=== PATIENT | female | born 1955 | race Caucasian/White ===

== ENCOUNTER → 2016-09-22 | Outpatient (CLI) | payer SELFPAY ==
[~2016-09-22] MED LIST: BACLOFEN10 MG PO; DULOXETINE HCL60 MG PO; HYDROCODON-ACE1 EAC7 PO; LODINE400 MG PO; LOPRESSOR PO; METFORMIN HCL500 M2 PO; NEXIUM PO; PLAQUENIL200 MG PO; PROGESTERONE100 MG PO; REQUIP2 MG PO; VITAMIN D-32000 UNIT PO; VIVELLE-DOT1 EAC4 TD; ZESTRIL10 MG PO
== END | disposition home or self-care (01) ==
LOC: CBAR 13:22
DX: Z01.818 Encounter for other preprocedural examination (principal); E66.01 Morbid (severe) obesity due to excess calories
CPT/HCPCS: G0463

== ENCOUNTER → 2016-10-19 | Outpatient (CLI) | payer SELFPAY | END | disposition home or self-care (01) | LOC: CBAR 09:02 | DX: Z01.818 Encounter for other preprocedural examination (principal); E66.01 Morbid (severe) obesity due to excess calories | CPT/HCPCS: G0463 ==

== ENCOUNTER → 2016-11-16 | Outpatient (CLI) | payer SELFPAY | END | disposition home or self-care (01) | LOC: CBAR 11:25 | DX: Z01.818 Encounter for other preprocedural examination (principal); E66.01 Morbid (severe) obesity due to excess calories | CPT/HCPCS: G0463 ==

== ENCOUNTER → 2016-12-08 | Outpatient (CLI) | payer SELFPAY ==
--- NOTE | ~2016-12-08 | CR63 ---
[facility] A Service of [facility] & [facility] RADIOLOGY TEXT RESULTS PATIENT: LISANDRA CANNON LOCATION: [facility] : 57 UNIT #: [id number] AGE: [address]: Maxx Connell III, MD SEX: F ORDER DR: [id number] [facility] [address] [place], [place] [address] [id number] O MR#: [id number] Acc #: [id number] NAME: LISANDRA CANNON : 1955 SEX: F STUDY DATE/TIME: 12/08/2016 8:53 UNIT: [facility] ROOM: STUDY DESCRIPTION: CR Chest 2 View Attending Physician: Maxx Connell III, M.D. Referring Physician: Maxx Connell III, M.D. Ordering Physician: Maxx Connell III, M.D. Primary Care Physician: Gaurav Maldonado Jr., M.D. MEDICAL IMAGING REPORT This report is preliminary unless electronic signature is present EXAM Chest PA and lateral 12/08/2016 HISTORY Morbid obesity. Preop laparoscopic gastric banding. Acid reflux. Benign essential hypertension. FINDINGS PA and lateral examination of the chest upright shows a good expansion of the parenchyma with a normal distribution of the pulmonary vascularity. There is no indication of congestion, effusion, infiltrate, tumor, or nodular density. The pleural reflections and diaphragmatic contours are normal. The cardiac silhouette and mediastinal anatomy is within normal limits. IMPRESSION Normal chest. Dictated by... Syed Carias M.D. THIS IS AN ELECTRONICALLY VERIFIED REPORT Syed Carias M.D. at 12/11/2016 7:33 AM MARGO/gerardo TD: 12/08/2016 20:00 JOB #: [id number] MEDICAL IMAGING REPORT Page 1 of 1 COPY
--- NOTE | ~2016-12-08 | EKG ---
PATIENT: LISANDRA CANNON UNIT #: [id number] Ventricular Rate: 63 BPM Atrial Rate: 63 BPM P-R Interval: 192 ms QRS Duration: 68 ms Q-T Interval: 412 ms QTC Calculation(Bezet): 421 ms Calculated R [place]: -15 degrees Calculated T [place]: -20 degrees Diagnosis Line: Normal sinus rhythm Diagnosis Line: Minimal voltage criteria for LVH, may be normal Diagnosis Line: variant Diagnosis Line: Nonspecific ST and T wave abnormality Diagnosis Line: Abnormal ECG Diagnosis Line: No previous ECGs available Diagnosis Line: Confirmed by WHIT KASPER MD ([id number]) on 12/08/2016 Diagnosis Line: 5:28:05 PM INTERPRETING MD: RANJITH AGUILAR
--- NOTE | ~2016-12-08 | CR97 ---
[facility] A Service of [facility] & [facility] RADIOLOGY TEXT RESULTS PATIENT: LISANDRA CANNON LOCATION: [facility] : 57 UNIT #: [id number] AGE: [address]: Maxx Connell III, MD SEX: F ORDER DR: [id number] [facility] [address] [place], [place] [address] [id number] O MR#: [id number] Acc #: [id number] NAME: LISANDRA CANNON : 1955 SEX: F STUDY DATE/TIME: 12/08/2016 9:32 UNIT: [facility] ROOM: STUDY DESCRIPTION: CR Esophagram Attending Physician: Maxx Connell III, M.D. Referring Physician: Maxx Connell III, M.D. Ordering Physician: Maxx Connell III, M.D. Primary Care Physician: Gaurav Maldonado Jr., M.D. MEDICAL IMAGING REPORT This report is preliminary unless electronic signature is present EXAM Esophagram 12/08/2016 HISTORY Planned bariatric surgery, preop assessment. PROCEDURE Solid column upper GI was performed with 0.3 minutes of fluoroscopy and 7 spot images. FINDINGS The esophagus is normal in course and caliber. There is no mass or ulceration or stricture or hernia. IMPRESSION Normal esophagram. Dictated by... Jv Rios M.D. THIS IS AN ELECTRONICALLY VERIFIED REPORT Jv Rios M.D. at 12/11/2016 9:06 AM CHER/lana TD: 12/09/2016 01:51 JOB #: [id number] MEDICAL IMAGING REPORT Page 1 of 1 COPY
[2016-12-08 10:16] LABS: HEMATOCRIT 39.8 % (35.0-45.0); HEMOGLOBIN 13.5 gm/dL (12.0-16.0); MEAN CELL VOLUME 81.7 FL (83-96); MEAN CORPUSCULAR HEMOGLOBIN 27.6 PG (28-34); MEAN CORPUSCULAR HGB CONC 33.8 g/dL (30-36); MEAN PLATELET VOLUME 8.5 FL (6.5-11.5); RED BLOOD COUNT 4.88 X10e (3.90-5.30); RED CELL DISTRIBUTION WIDTH 13.7 % (11.0-15.5); WHITE BLOOD COUNT 6.8 X10e3 (4.0-10.5)
[2016-12-08 10:59] LABS: BILIRUBIN,TOTAL 0.5 mg/dL (0.2-2.0); BUN/CREATININE RATIO 21.42; CALCIUM SERUM 9.6 mg/dL (8.4-10.2); CREATININE SERUM 0.7 mg/dL (0.6-1.4); GLOM FILT RATE Estimated 94.2 mL/min (>60); POTASSIUM 4.3 mmol/L (3.5-5.1); PROTEIN TOTAL SERUM 6.5 g/dL (6.0-8.3)
== END | disposition home or self-care (01) ==
LOC: CRAD 08:27 → CAMB 09:30
PROVIDERS: Surgery
DX: Z01.818 Encounter for other preprocedural examination (principal); E66.01 Morbid (severe) obesity due to excess calories
CPT/HCPCS: 36415; 71020; 74220; 80053; 80061; 84443; 85027; 93005

== ENCOUNTER → 2016-12-20 | Day surgery (SDC) | payer SELFPAY ==
--- NOTE | ~2016-12-20 | OR ---
Unit #: [id number] #: [id number] Patient: LISANDRA CANNON [id number] [facility] [address] [place], [place] [address] [id number] O MR#: [id number] NAME: LISANDRA CANNON ROOM: Date of Procedure: 12/20/2016 Admission Date: 12/20/2016 Surgeon: aMxx Connell III, M.D. : 1955 Attending Physician: Maxx Connell III, M.D. Primary Care Physician: Gaurav Maldonado Jr., M.D. OPERATIVE REPORT PREOPERATIVE DIAGNOSIS Chronic severe obesity. POSTOPERATIVE DIAGNOSIS Chronic severe obesity. SECONDARY DIAGNOSIS Anterior paraesophageal hernia. PROCEDURE PERFORMED Laparoscopic adjustable gastric banding (AP standard with regular port and laparoscopic paraesophageal hernia repair). CADDIE Dr. Gaurav Junior. SPECIMENS None. COMPLICATIONS None apparent. ESTIMATED BLOOD LOSS Minimal. ANESTHESIA General tracheal tube anesthesia. INDICATIONS FOR PROCEDURE This is a 61-year-old lady, who has chronic severe obesity with a BMI of 37 and associated comorbidities of reflux and diabetes. She has been through the bariatric program at [facility] and understands the risks and benefits of the procedure. DESCRIPTION OF PROCEDURE After consent was obtained, including the risks and benefits of slippage, erosion, port dysfunction, and possible failure of weight loss due to noncompliance, the patient was taken to the operating room and placed in the supine position. General anesthetic was administered and the abdomen was prepped and draped in standard surgical fashion. I began by making a 2 cm incision just above and to the left of the umbilicus. I used a Visiport to enter the peritoneal cavity without any Unit #: [id number] #: [id number] Patient: LISANDRA CANNON difficulty. C02 pneumoperitoneum was then established. Next, I placed a 5 mm port in the right upper quadrant, a 5 mm Christine liver retractor in the subxiphoid region to provide exposure of the gastroesophageal junction. Next, a 10 mm port was placed in the left upper quadrant and a 5 mm port was placed in the left lateral subcostal region. I began by performing an examination of the GE junction to evaluate for a hiatal hernia. We then scored the peritoneal attachments overlying the angle of His. I then opened up the clear space in the gastrohepatic ligament, and then using 2 blunt graspers, I identified the small fat pad crossing over the right crura. I swept the fat anterior to the crura off the crura and using the pars flaccida, I created a retrogastric tunnel where the blunt grasper exited at the angle of His. Once I had made this tunnel safely, I then inserted an Allergan AP band into the abdominal cavity. This adjustable gastric band was then place around the upper part of the stomach and fastened and buckled anteriorly. We then tacked the lateral fundus over the band to the proximal pouch with 2 interrupted 0 Ethibond sutures. I then used a third stitch to imbricate the excess anterior stomach by going from the lesser curvature up towards where the last stitch was placed. We then had excellent hemostasis. I removed the Christine liver retractor. We then removed the port tubing through the initial port incision. The rest of the ports were removed, and the pneumoperitoneum was released. I then left a small tail on the tubing. We then attached the port to the excess band tubing. We placed a piece of Prolene mesh along the back side of the port and used a Prolene stitch to anchor this mesh in place. We then trimmed the excess mesh so that just a small footprint of mesh was in place behind the port. I then inserted the tubing back into the abdominal cavity, and we placed the port into a small pocket that was made just inferior to where our initial port incision was made. The mesh was in direct contact with the fascia, and this will scar in place to hold the port in place. We then injected all the port sites with 0.25% plain Marcaine, and I reapproximated the skin edges with interrupted 4-0 Vicryl subcuticular sutures. Steri-strips were then applied. The patient tolerated the procedure without any problems and returned to the recovery room in stable condition. ADDENDUM After the exposure of the GE junction, the patient was noted to have a small to medium size anterior paraesophageal hernia. I scored the phrenoesophageal ligament, reduced the hernia defect and after identifying both the right and left crura, I reapproximated the defect with an interrupted 0 Ethibond [id number] suture. I then proceeded with the case as listed above. Dictated by... Maxx Connell III, M.D. VCL/april TD: 12/21/2016 12:15 JOB #: [id number] Unit #: [id number] #: [id number] Patient: LISANDRA CANNON OPERATIVE REPORT Page 1 of 1 X Maxx Connell III, MD PROCEDURE OPERATIVE NOTE
--- NOTE | ~2016-12-20 | CR7 ---
[facility] A Service of [facility] & [facility] RADIOLOGY TEXT RESULTS PATIENT: LISANDRA CANNON LOCATION: [facility] : 57 UNIT #: [id number] AGE: [address]: Maxx Connell III, MD SEX: F ORDER DR: [id number] [facility] [address] [place], [place] [address] [id number] O MR#: [id number] Acc #: [id number] NAME: LISANDRA CANNON : 1955 SEX: F STUDY DATE/TIME: 12/20/2016 10:54 UNIT: [facility] ROOM: STUDY DESCRIPTION: CR Abdomen Single AP View Attending Physician: Mxax Connell III, M.D. Ordering Physician: Maxx Connell III, M.D. Primary Care Physician: Gaurav Maldonado Jr., M.D. MEDICAL IMAGING REPORT This report is preliminary unless electronic signature is present EXAM Abdomen one-view 12/20/2016 1054 hours HISTORY 61-year-old woman with history of morbid obesity, postop lap-band placement today. COMPARISON Preop esophagram 12/08/2016 FINDINGS Single supine view of the abdomen is obtained in recovery. The left flank and pelvis are excluded from the film. The patient appears rotated. There is a lap-band in the medial left upper quadrant oriented at 54 degrees from vertical. Radiopaque tubing courses inferiorly and leftward. The port is not included in the field of view. No evidence of bowel obstruction. IMPRESSION Limited film due to rotation and large body habitus. There is postop change of lap-band placement at the region of the GE junction oriented at 54 degrees from vertical. Radiopaque tubing courses inferiorly and leftward. The area of the port is not included in the field of view. Dictated by... Luisa Lopez M.D. THIS IS AN ELECTRONICALLY VERIFIED REPORT Luisa Lopez M.D. at 12/21/2016 9:25 AM JULIUS/doug TD: 12/20/2016 19:32 JOB #: [id number] [facility] A Service of [facility] & [facility] RADIOLOGY TEXT RESULTS PATIENT: LISANDRA CANNON LOCATION: [facility] #: [id number] : 57 UNIT #: [id number] AGE: [address]: Maxx Connell III, MD SEX: F ORDER DR: MEDICAL IMAGING REPORT Page 1 of 1 COPY
== END | disposition home or self-care (01) ==
LOC: CSUR 07:54
DX: E66.01 Morbid (severe) obesity due to excess calories (principal); K44.9 Diaphragmatic hernia without obstruction or gangrene; E11.9 Type 2 diabetes mellitus without complications; K21.9 Gastro-esophageal reflux disease without esophagitis; M19.90 Unspecified osteoarthritis, unspecified site; I10 Essential (primary) hypertension; E78.5 Hyperlipidemia, unspecified; G43.909 Migraine, unspecified, not intractable, without status migrainosus; M81.0 Age-related osteoporosis without current pathological fracture; M06.9 Rheumatoid arthritis, unspecified; Z68.37 Body mass index [BMI] 37.0-37.9, adult; Z88.8 Allergy status to other drugs, medicaments and biological substances; Z88.2 Allergy status to sulfonamides; Z91.040 Latex allergy status; Z79.84 Long term (current) use of oral hypoglycemic drugs; Z79.899 Other long term (current) drug therapy; Z96.653 Presence of artificial knee joint, bilateral; Z98.51 Tubal ligation status; Z98.890 Other specified postprocedural states
CPT/HCPCS: 74000; 82947; C1781; J0330; J0690; J1650; J1885; J2250; J2405; J2550; J2710; J3010; L8699